=== PATIENT | female | born 1960 | race Caucasian/White ===

== ENCOUNTER → 2024-08-19 06:34 | Day surgery (SDC) | payer BC, SELFPAY | LOC: GI 06:34 | PROVIDERS: ATTENDING PHYSICIAN Surgery; FAMILY PHYSICIAN Family Medicine | DX: Z12.11 Encounter for screening for malignant neoplasm of colon (principal); C19 Malignant neoplasm of rectosigmoid junction; K64.9 Unspecified hemorrhoids; D12.2 Benign neoplasm of ascending colon; Z86.0100 Personal history of colon polyps, unspecified | CPT/HCPCS: 45385; 45381; 45380; 88305; 88342 ==

== ENCOUNTER → 2024-08-27 11:01 | Outpatient (REF) | payer BC, SELFPAY | LOC: HWWDC 11:01 | PROVIDERS: ATTENDING PHYSICIAN Surgery; FAMILY PHYSICIAN Family Medicine; REFERRING PHYSICIAN Obstetrics & Gynecology | DX: C18.9 Malignant neoplasm of colon, unspecified (principal); Z12.31 Encounter for screening mammogram for malignant neoplasm of breast | CPT/HCPCS: 71260; 74177; 77063; 77067; Q9967 ==

== ENCOUNTER 2024-09-08 06:08 | Inpatient (IN) | payer BC, SELFPAY ==
[2024-08-31 10:25] VITALS: BMI 27.8
[2024-08-31 10:36] LABS: Hematocrit 43.3 % (37.0-47.0); Hemoglobin 14.3 g/dL (12.0-16.0); Mean Corpuscular Hgb 27.8 pg (27.0-31.0); Mean Corpuscular Volume 84.1 fL (81.0-99.0); Mean Platelet Volume 9.3 fL (7.4-10.4); Platelet Count 233 10^3/uL (130-400); Red Blood Cell Count 5.15 10^6/uL (4.20-5.40); Red Cell Dist. Width 14.1 % (11.5-14.5); White Blood Cell Count 6.1 10^3/uL (4.8-10.8)
[2024-08-31 10:54] LABS: INR 1.02; PT 13.2 Sec (11.4-14.6)
[2024-08-31 10:55] LABS: APTT 33.5 Sec (23.4-35.0)
[2024-08-31 11:35] LABS: Glycohemoglobin (HgbA1c) 5.4 % (4.0-5.6)
[2024-08-31 12:27] LABS: ALT (SGPT) 30 U/L (0-35); AST (SGOT) 35 U/L (14-36); Albumin 4.3 g/dl (3.5-5.0); Alkaline Phosphatase 87 U/L (38-126); Blood Urea Nitrogen 13 mg/dl (7-17); Calcium 9.3 mg/dl (8.4-10.2); Carbon Dioxide 26 mmol/L (22-30); Chloride 103 mmol/L (98-107); Estimated Creatinine Clearance 99 ml/min; Glucose 88 mg/dl (70-99); Potassium 4.6 mmol/L (3.5-5.1); Sodium 141 mmol/L (135-145); Total Bilirubin 0.4 mg/dl (0.2-1.3); Total Protein 7.1 g/dl (6.3-8.2); eGFR > 60.00
[2024-08-31 20:41] LABS: CEA 2.65 ng/ml
[2024-09-08] VITALS (13 sets, daily range): BP systolic 10–127; BP diastolic 55–69; BMI 27.8
[2024-09-08] MEDS: TYLENOL 1000 MG PO (06:38)
[2024-09-08] MEDS: ENTEREG 12 MG PO (06:38)
[2024-09-08] MEDS: HEPARIN 5000 UNITS SC (06:38)
[2024-09-08] MEDS: NEURONTIN 600 MG PO (06:38)
--- NOTE | 2024-09-08 11:41 | W.OR.COLCA ---
Addendum entered and electronically signed by Bulmaro Cardenas MD 09/08/24 11:57:
Patient's , Rod, updated via phone conversation.
Addendum entered and electronically signed by Bulmaro Cardenas MD 09/08/24 11:54:
Of note, aftab, stents placed by Dr. Funk of urology. R stent removed at end.
Original Note:
Colon Cancer Post Op Note
Immediate Post Op
Primary Surgeon: Oma Cardenas MD
Assisting Surgeon: MOON Templeton
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
Post-op Diagnosis: same
Procedure Performed: 1) robotic low-anterior resection 2) flexible sigmoidoscopy
Anesthesia Type: general plus local
Specimen / Cultures: 1) sigmoid and upper rectum 2) distal anastomotic donut
Estimated Blood Loss: 50 cc
Complications: no immediate
Operative Findings: 1) rectosigmoid tumor with distal upper rectal tattooing 2) no obvious abdominal metastatic disease
#19 Vinay in pelvis.
Will send to med surg.
Colon Resection
Colon Resection
Operation performed with curative intent: Yes
Tumor Location: Rectosigmoid Junction
Sigmoid Resection: Inferior Mesenteric (Was technically a low-anterior resection (LAR) rather than a sigmoidectomy; distal margin 6 cm; anastomosis at 9-10 cm)
[2024-09-08 12:32] LABS: % Basophils 0.2 % (0-2); % Immature Granulocytes 0.6 % (0-0.5); % Lymphocytes 8.3 % (20.5-51.1); % Monocytes 0.9 % (1.7-9.3); Absolute Immature Granulocytes 0.1 10^3/uL (0-0.05); Absolute Lymphocytes 1.1 10^3/uL (1.2-3.4); Absolute Monocytes 0.1 10^3/uL (0.1-0.6); Absolute Neutrophils 11.5 10^3/uL (1.4-6.5); Hematocrit 39.1 % (37.0-47.0); Hemoglobin 13.5 g/dL (12.0-16.0); Mean Corp Hgb Conc. 34.5 g/dL (33.0-37.0); Mean Corpuscular Hgb 27.6 pg (27.0-31.0); Mean Corpuscular Volume 79.8 fL (81.0-99.0); Mean Platelet Volume 9.3 fL (7.4-10.4); Nucleated Red Blood Cells % 0 %; Platelet Count 227 10^3/uL (130-400); White Blood Cell Count 12.7 10^3/uL (4.8-10.8)
[2024-09-08 13:08] LABS: Blood Urea Nitrogen 8 mg/dl (7-17); Calcium 8.4 mg/dl (8.4-10.2); Carbon Dioxide 22 mmol/L (22-30); Chloride 104 mmol/L (98-107); Estimated Creatinine Clearance 99 ml/min; Glucose 153 mg/dl (70-99); Potassium 3.7 mmol/L (3.5-5.1); Sodium 141 mmol/L (135-145); eGFR > 60.00
[2024-09-08] MEDS: TYLENOL PO (13:57)
[2024-09-08] MEDS: NORMOSOL-R/PLASMALYTE-A 1000 IV (14:05)
[2024-09-08] MEDS: TORADOL 10 MG IV ×2 (14:05→17:49)
--- NOTE | 2024-09-08 14:13 | PTCARENOTE ---
Pt arrived to 2S in bed. Full assessment completed. Nasal cannula maintained. Abdominal incisions C/D/I, glued and CARLOS. Drain site C/D/I, sanguinous output noted in drain. IVF infusing per order. Bed locked and in the lowest position, safety
maintained. Oriented to room and call johnson.
[2024-09-08] MEDS: TYLENOL 650 MG PO ×2 (15:39→21:03)
[2024-09-08] MEDS: DILAUDID 0.25 MG IV (17:49)
[2024-09-08] MEDS: MELATONIN 5 MG PO (21:54)
[2024-09-08] MEDS: MYLICON 80 MG PO (21:54)
[2024-09-09] MEDS: TORADOL 10 MG IV ×4 (00:36→18:05)
[2024-09-09] MEDS: TYLENOL PO (00:40)
[2024-09-09 03:18] VITALS: BP 105/59
[2024-09-09] MEDS: TYLENOL 650 MG PO ×5 (04:22→21:33)
[2024-09-09 05:53] VITALS: BMI 27.5
[2024-09-09] MEDS: NORMOSOL-R/PLASMALYTE-A 1000 IV ×2 (06:05→18:10)
[2024-09-09 06:32] LABS: % Basophils 0.2 % (0-2); % Immature Granulocytes 0.4 % (0-0.5); % Lymphocytes 13.4 % (20.5-51.1); % Monocytes 6.5 % (1.7-9.3); % Neutrophils 79.5 % (42.2-75.2); Absolute Immature Granulocytes 0.1 10^3/uL (0-0.05); Absolute Lymphocytes 1.6 10^3/uL (1.2-3.4); Absolute Monocytes 0.8 10^3/uL (0.1-0.6); Absolute Neutrophils 9.3 10^3/uL (1.4-6.5); Hematocrit 37.3 % (37.0-47.0); Hemoglobin 12.9 g/dL (12.0-16.0); Mean Corp Hgb Conc. 34.6 g/dL (33.0-37.0); Mean Corpuscular Hgb 28.6 pg (27.0-31.0); Mean Corpuscular Volume 82.7 fL (81.0-99.0); Mean Platelet Volume 9.7 fL (7.4-10.4); Nucleated Red Blood Cells % 0 %; Platelet Count 210 10^3/uL (130-400); Red Blood Cell Count 4.51 10^6/uL (4.20-5.40); Red Cell Dist. Width 14.2 % (11.5-14.5); White Blood Cell Count 11.8 10^3/uL (4.8-10.8)
[2024-09-09 06:52] LABS: Blood Urea Nitrogen 9 mg/dl (7-17); Calcium 8.8 mg/dl (8.4-10.2); Carbon Dioxide 24 mmol/L (22-30); Chloride 103 mmol/L (98-107); Estimated Creatinine Clearance 99 ml/min; Glucose 93 mg/dl (70-99); Magnesium 2.2 mg/dl (1.6-2.3); Potassium 4.5 mmol/L (3.5-5.1); Sodium 141 mmol/L (135-145); eGFR > 60.00
[2024-09-09 07:15] VITALS: BP 123/71
[2024-09-09] MEDS: MYLICON 80 MG PO (07:15)
[2024-09-09 07:40] LABS: Hepatitis C Antibody Negative (Negative)
[2024-09-09] MEDS: ENTEREG 12 MG PO ×2 (08:13→21:33)
[2024-09-09] MEDS: PROTONIX 40 MG PO (08:13)
--- NOTE | 2024-09-09 08:54 | W.PN.CRS1 ---
Today's Communication / Plan
-
stent out, d/c ugalde
clears, possible advance to fulls later
OOB
Assessment/Plan
-
POD#1 1) robotic low-anterior resection 2) flexible sigmoidoscopy
-Vitals normal. WBC 11.8, as expected.
-OOB as tolerated.
-Okay to shower.
-Stent #2 removed at bedside, okay to d/c ugalde.
-Start on a clear liquid diet, advance to a fulls if tolerates. D/C IVFs when tolerating po.
-Pain control: Tylenol/toradol standing, Dilaudid PRN.
-OR pathology pending.
-TEDS/SCDS for DVT prophylaxis, start lovenox.
Subjective Data
Procedure
09/08/2024- 1) robotic low-anterior resection 2) flexible sigmoidoscopy
Subjective Data
Date of Service: September 09, 2024
Patient states she has no nausea or vomiting. Her pain is minimal. She is hungry. She feels like she has a lot of gas in her abdomen.
Objective Data
-
Vital Signs
Temp Pulse Resp BP Pulse Ox
98.3 F 69 15 123/71 98
09/09/24 07:15 09/09/24 07:15 09/09/24 07:15 09/09/24 07:15 09/09/24 07:15
Intake & Output
09/08/24 09/09/24 09/10/24
06:59 06:59 06:59
Intake Total 1630 / 1630
Output Total 1900 / 1900
Balance -270 / -270
Intake:
IV fluids (Total) 1630 / 1630
Normosol 350 / 350
Output:
Drain Output (Total)
Abdomen
Urine, Ugalde 1874 / 1874
Lab Results
09/09/24 04:19
09/09/24 04:19
Physical Exam
-
General: No Acute Distress and AOx3
Abdomen: Soft, Non Distended and Non Tender
Skin: Warm and Dry
Incision: Clear, Dry, Intact
[2024-09-09 11:10] VITALS: BP 139/63
--- NOTE | 2024-09-09 11:31 | CM ---
Met with pt at bedside
Pt reports she lives with her and son in a 2 story home; 2 steps to enter, 12 steps to 2nd fl
Independent, employed, driving
DME - commode, rolling walker, cane - recently had sx
SNF/HH - no past hx
Has ride home at discharge
PCP - Carissa Loera
Pharm - [facility]
CM will follow for discharge needs
Plan - anticipate home no needs vs w/VN when medically stable
[2024-09-09 15:15] VITALS: BP 112/59
[2024-09-09] MEDS: LOVENOX 40 MG SC (18:05)
[2024-09-09 23:24] VITALS: BP 127/77
[2024-09-10] MEDS: TORADOL 10 MG IV ×5 (00:53→23:43)
[2024-09-10] MEDS: TYLENOL PO ×2 (00:57→05:56)
[2024-09-10 06:00] VITALS: BMI 27.6
[2024-09-10 06:31] LABS: % Basophils 0.5 % (0-2); % Eosinophils 0.9 % (0-6); % Immature Granulocytes 0.2 % (0-0.5); % Lymphocytes 39.5 % (20.5-51.1); % Monocytes 6.5 % (1.7-9.3); % Neutrophils 52.4 % (42.2-75.2); Absolute Eosinophils 0.1 10^3/uL (0-0.7); Absolute Lymphocytes 3.2 10^3/uL (1.2-3.4); Absolute Monocytes 0.5 10^3/uL (0.1-0.6); Absolute Neutrophils 4.3 10^3/uL (1.4-6.5); Blood Urea Nitrogen 7 mg/dl (7-17); Calcium 8.6 mg/dl (8.4-10.2); Carbon Dioxide 26 mmol/L (22-30); Chloride 103 mmol/L (98-107); Estimated Creatinine Clearance 99 ml/min; Glucose 82 mg/dl (70-99); Hematocrit 35.6 % (37.0-47.0); Hemoglobin 12.1 g/dL (12.0-16.0); Mean Corpuscular Hgb 28.3 pg (27.0-31.0); Mean Corpuscular Volume 83.2 fL (81.0-99.0); Mean Platelet Volume 9.3 fL (7.4-10.4); Nucleated Red Blood Cells % 0 %; Platelet Count 199 10^3/uL (130-400); Potassium 4.1 mmol/L (3.5-5.1); Red Blood Cell Count 4.28 10^6/uL (4.20-5.40); Red Cell Dist. Width 14.3 % (11.5-14.5); Sodium 140 mmol/L (135-145); White Blood Cell Count 8.2 10^3/uL (4.8-10.8); eGFR > 60.00
[2024-09-10 07:10] VITALS: BP 114/69
[2024-09-10] MEDS: ENTEREG 12 MG PO ×2 (07:59→19:47)
[2024-09-10] MEDS: PROTONIX 40 MG PO (07:59)
[2024-09-10] MEDS: TYLENOL 650 MG PO ×5 (07:59→23:44)
--- NOTE | 2024-09-10 08:36 | W.PN.CRS1 ---
Today's Communication / Plan
-
low residue diet
urinalysis
Assessment/Plan
-
POD#2 1) robotic low-anterior resection 2) flexible sigmoidoscopy
-Vitals normal. WBC normalized.
-OOB as tolerated.
-Okay to shower.
-Voiding post ugalde removal. Given right sided pelvic pain, will order a UA.
-Advance diet to low residue.
-Pain control: Tylenol/toradol standing, Dilaudid PRN.
-OR pathology pending.
-TEDS/SCDS for DVT prophylaxis, start lovenox.
-Possible d/c later today.
Subjective Data
Procedure
09/08/2024- 1) robotic low-anterior resection 2) flexible sigmoidoscopy
Subjective Data
Date of Service: September 10, 2024
Patient states she has some right shotting pain into her vagina. Otherwise, she is urinating without difficulty. She is hungry. She has no nausea or vomiting. She is having flatus. She had some dark red bloody clot in her stool which has stopped.
Objective Data
-
Vital Signs
Temp Pulse Resp BP Pulse Ox
97.9 F 62 15 114/69 100
09/10/24 07:10 09/10/24 07:10 09/10/24 07:10 09/10/24 07:10 09/10/24 07:10
Intake & Output
09/09/24 09/10/24 09/11/24
06:59 06:59 06:59
Intake Total 1630 / 1630 5280 / 5280
Output Total 1900 / 1900 1550 / 1550
Balance -270 / -270 3730 / 3730
Intake:
Oral fluids 3360 / 3360
IV fluids (Total) 1630 / 1630 1920 / 1920
Normosol 350 / 350
Output:
Drain Output (Total)
Abdomen
Urine, Ugalde 1874 / 1874 600 / 600
Urine, Voided 950 / 950
Other:
Number of approximated MODERATE 2
amounts of urine
Lab Results
09/10/24 04:19
09/10/24 04:19
Physical Exam
-
General: No Acute Distress and AOx3
Abdomen: Soft, Non Distended and Non Tender
Skin: Warm and Dry
Incision: Clear, Dry, Intact
--- NOTE | 2024-09-10 09:48 | CM ---
Case management following for discharge planning
Chart reviewed. Met with pt at bedside
Poss d/c later today or in AM
Will have ride home when discharged
Plan - anticipate home no needs when medically ready
[2024-09-10 12:07] LABS: Urine Albumin Negative (Neg - Trace); Urine Bilirubin Negative (Negative); Urine Character Slightly Cloudy (Clear); Urine Color Yellow; Urine Glucose Negative (Negative); Urine Ketone Negative (Negative); Urine Leukocyte Negative (Negative); Urine Nitrite Negative (Negative); Urine Occult Blood 4+ (Negative); Urine Urobilinogen Negative (Neg - 1+)
[2024-09-10] MEDS: MYLICON 80 MG PO ×2 (12:14→21:40)
[2024-09-10 12:24] LABS: Urine Red Blood Cell >100 /HPF (0-2); Urine White Cell 0-2 /HPF (0-5)
[2024-09-10 15:01] VITALS: BP 101/57
[2024-09-10] MEDS: LOVENOX 40 MG SC (17:13)
[2024-09-10 22:54] VITALS: BP 98/58
[2024-09-11] MEDS: TYLENOL 650 MG PO ×3 (03:21→11:16)
[2024-09-11] MEDS: TORADOL 10 MG IV ×2 (05:17→11:16)
[2024-09-11 05:48] VITALS: BMI 27.2
[2024-09-11 07:07] VITALS: BP 120/72
[2024-09-11] MEDS: PROTONIX 40 MG PO (07:30)
[2024-09-11] MEDS: ENTEREG 12 MG PO (07:30)
[2024-09-11] MEDS: MYLICON 80 MG PO (07:36)
--- NOTE | 2024-09-11 10:44 | W.PN.CRS1 ---
Today's Communication / Plan
-
Discharge
Assessment/Plan
-
POD# 3 1) robotic low-anterior resection 2) flexible sigmoidoscopy
-Vitals normal. WBC normalized.
-OOB as tolerated.
-Okay to shower.
-Urinalysis negative from yesterday
-Continue low residue diet
-Pain control: Tylenol/toradol standing, Dilaudid PRN.
-OR pathology pending.
-TEDS/SCDS for DVT prophylaxis, lovenox.
-OWEN drain removed at bedside
-Okay for discharge today. All discharge instructions discussed with the patient including activity levels, follow-up, and medications, all questions answered.
Subjective Data
Procedure
09/08/2024- 1) robotic low-anterior resection 2) flexible sigmoidoscopy
Subjective Data
Date of Service: September 11, 2024
Patient states she feels well. She is having bowel movement. She is having flatus. She denies nausea or vomiting. Her pain is controlled. She currently has no complaints. The right lower quadrant pelvic pain has resolved.
Objective Data
-
Vital Signs
Temp Pulse Resp BP Pulse Ox
98.3 F 60 15 120/72 98
09/11/24 07:07 09/11/24 07:07 09/11/24 07:07 09/11/24 07:07 09/11/24 07:07
Intake & Output
09/10/24 09/11/24 09/12/24
06:59 06:59 06:59
Intake Total 5280 / 5280 1979
Output Total 1550 / 1550
Balance 3730 / 3730 1969 / 1969
Intake:
Oral fluids 3360 / 3360 1979
IV fluids (Total) 1919
Output:
Drain Output (Total)
Abdomen
Urine, Fonseca 600 / 600
Urine, Voided 950 / 950
Other:
Number of approximated MODERATE 2 2
amounts of urine
Lab Results
09/10/24 04:19
09/10/24 04:19
Physical Exam
-
General: No Acute Distress and AOx3
Abdomen: Soft, Non Distended, Non Tender and Other (OWEN drain serous)
Skin: Warm and Dry
Incision: Clear, Dry, Intact
--- NOTE | 2024-09-11 11:02 | W.DCSUMMARY ---
Discharge Summary
Discharge Data
Date of Admission: 09/08/24
Date of Discharge: 09/11/24
-
Pending Results: Yes
Additional Pending Results:
OR pathology
Hospital Course
[id number] female presented to [place] for a scheduled block anterior resection due to rectosigmoid junction/distal cancer. This was performed by Dr. Bulmaro Cardenas on 09/08/2024. Postoperatively she was brought back to the medical
surgical floor. Her diet was advanced from a clear liquid diet to a low residue diet throughout her stay. She was out of bed on postop day 1. Lovenox was started for DVT prophylaxis and teds and SCDs were in place. Her Fonseca was removed on
postop day 1 and she voided without difficulty. Her OWEN drain was removed prior to discharge. On postop day 3 was determined the patient could be discharged to home. All discharge instructions were discussed with the patient including medication
details and follow-up. All questions were answered. Or pathology was pending at the time of discharge.
Discharge Plan
-
Patient Disposition: Home (Routine Discharge)
Discharge Diagnosis/Procedures: Low anterior resection
Diet: Low Residue
Activity: No strenuous activity
Additional Activity: No lifting over 10 pounds (gallon of milk)
Driving Restrictions: Not until seen by your Dr
Bathing Restrictions: OK to Shower
Wound Care: Allow glue to naturally fall off. Do not pick at incisions.
Instructions: Low Fiber Diet
Referrals:
Bulmaro Cardenas MD [Active] - in two weeks
Carissa Loera MD [Family Provider] - in one week
Additional Discharge Medication Instructions: You may take Tylenol or ibuprofen as needed for pain.
Prescriptions:
New
oxycodone 5 mg tablet
5 mg PO Q6H PRN (Reason: Pain) Qty: 20 0RF
Continued
clobetasol 0.05 % Cream
1 applic TOPICAL PRN PRN (Reason: Rash)
lorazepam 0.5 mg Tablet
0.5 mg PO PRN PRN (Reason: Anxiety)
ascorbic acid (vitamin C) [Vitamin C] 250 mg Tablet,Chewable
250 mg PO DAILY
diphenhydramine-acetaminophen [Tylenol PM Extra Strength] 25-500 mg Tablet
1 tab PO HS PRN (Reason: Insomnia)
cholecalciferol (vitamin D3) [Vitamin D3] 50 mcg (2,000 unit) Capsule
50 mcg PO DAILY
multivit with min-folic acid [Multivitamin Gummies] 200 mcg Tablet,Chewable
2 tab PO DAILY
melatonin 10 mg Tablet
10 mg PO HS PRN (Reason: Insomnia)
betamethasone valerate 0.12 % Foam
1 applic TOPICAL PRN PRN (Reason: Rash )
Discontinued
metronidazole 500 mg Tablet
500 mg PO PRE PROCEDURE
Patient Comments:
took at 1400,1500,and 2200 on 09/07/24
ferrous sulfate 325 mg (65 mg iron) Tablet
325 mg PO DAILY
neomycin 500 mg Tablet
1 g PO PRE PROCEDURE
Patient Comments:
took at 1400,1500,and 2200 on 09/07/24
Sutab 1.479-0.188- 0.225 gram Tablet
0 tab PO PRE PROCEDURE
Discharge Orders:
Discharge Patient (As Directed); Ordered 09/11/24
Ordered By: Doris Beltran
Discharge Date and Time
Print Language: OCCITAN
[2024-09-11 11:21] VITALS: BP 106/68
--- NOTE | 2024-09-11 11:25 | CM ---
Met with pt at bedside
For discharge today
Has ride home with family member
Plan - home no needs
== END 2024-09-11 11:54 | disposition home or self-care (01) | DRG 331 ==
LOC: 2 SOUTH 06:08
PROVIDERS: Physician Assistant; ADMITTING PHYSICIAN Surgery; FAMILY PHYSICIAN Family Medicine
PROC: 0DBN4ZZ Excision of Sigmoid Colon, Percutaneous Endoscopic Approach (ICD-10-PCS; 2024-09-08)
PROC: 0DJD8ZZ Inspection of Lower Intestinal Tract, Via Natural or Artificial Opening Endoscopic (ICD-10-PCS; 2024-09-08)
PROC: 0DBP4ZZ Excision of Rectum, Percutaneous Endoscopic Approach (ICD-10-PCS; 2024-09-08)
PROC: 8E0W4CZ Robotic Assisted Procedure of Trunk Region, Percutaneous Endoscopic Approach (ICD-10-PCS; 2024-09-08)
DX: C19 Malignant neoplasm of rectosigmoid junction (principal); D50.9 Iron deficiency anemia, unspecified; Z98.84 Bariatric surgery status
CPT/HCPCS: 88304; 88309; 36415; 80048; 80053; 81003; 81015; 82378; 83036; 83735; 85025; 85027; 85610; 85730; 86803; 86850; 86900; 86901; 93005; J1335

== ENCOUNTER 2025-09-08 06:20 | Day surgery (SDC) | payer BC, SELFPAY | END 2025-09-08 15:04 | disposition home or self-care (01) | LOC: GI 06:20 | PROVIDERS: ATTENDING PHYSICIAN Surgery | DX: Z08 Encounter for follow-up examination after completed treatment for malignant neoplasm (principal); Z85.048 Personal history of other malignant neoplasm of rectum, rectosigmoid junction, and anus; K63.89 Other specified diseases of intestine | CPT/HCPCS: 45378 ==